=== PATIENT | male | born 1980 | race Hispanic/Latino ===

== ENCOUNTER 2025-02-28 13:10 | Emergency (ER) | payer BC, SELFPAY ==
[2025-02-28 13:14] VITALS: BP 145/93
[2025-02-28 13:39] VITALS: BMI 39.3
--- NOTE | 2025-02-28 13:50 | EDRN ---
Hand wrapped in wet saline dressings and covered w/blue chux to hold dressings in place prior to leaving for Xray. Rene polanco CHIEF [employer]IT FORESTER in to see pt.
--- NOTE | 2025-02-28 13:58 | ED.GENMED ---
History of Present Illness
General
Chief Complaint: Skin Surface Trauma
Source: patient
Exam Limitations: none
Time Seen by Provider: 02/28/25 13:37
Nursing documentation reviewed up to this point in time: agreed with
History of Present Illness
History of Present Illness:
44 yr old male presents to the ED for evaluation of finger lacerations. Pt works in [employer] and was trimming bushes and accidentally cut himself with a hedge tremor. He is right-hand dominant. He is up to date on his tetanus. patient
complains lacerations to his left hand 1st, 3rd, 4th and 5th fingers. He denies any numbness tingling.
Phy Exam
General Physical Exam
General Presentation: no apparent distress
General age: appears stated age
General Skin: warm and dry
General Habitus: normal
General Mental: alert
General Hydration: appears well hydrated
Neurological Exam
Neurological Exam: alert and oriented x3
Musculoskeletal Exam
Musculoskeletal Exam: other (Left upper extremity strong pulses left thumb with full-thickness 3 cm laceration to distal phalanx, third finger w/ 2 cm distal full-thickness lac volar aspect distal phalanx fourth finger with 3 cm macerated
full-thickness laceration to distal phalanx volar aspect 5th finger 1 cm distal phlaynx )
Skin Exam
Skin Exam: normal color and warm/dry
Psychiatric Exam
Psychiatric Exam: normal mood/affect
Course
Orders/Labs/Results
Orders:
Orders
02/28/25 13:50
CR Hand - Left Min 3 Views Urgent
Comment:
Reason For Exam: injury to fingers middle, ring and thumb
02/28/25 15:08
Cephalexin Monohydrate [Keflex] 500 mg PO NOW STA
02/28/25 15:15
Ibuprofen [Motrin] 600 mg PO NOW STA
Vital Signs
Initial and Last Documented VS:
Initial Vital Signs
Temp Pulse Resp BP Pulse Ox
98.1 F 97 16 145/93 98
02/28/25 13:14 02/28/25 13:14 02/28/25 13:14 02/28/25 13:14 02/28/25 13:14
Last Documented Vital Signs
Temp Pulse Resp BP Pulse Ox
98.1 F 92 16 144/101 99
02/28/25 13:14 02/28/25 15:35 02/28/25 15:35 02/28/25 15:35 02/28/25 15:35
Procedures
Other
Indication for procedure:: Lacerations:
Procedure completed by: Myself
Additional Procedure:
Laceration to left thumb approximately 3 cm. to subcutaneous tissue sutured with 6 sutures of of 5.0 nylon simple interrupted
Laceration to third finger approximately 2 cm with 4 sutures of 5.0 nylon
Laceration to fourth finger approximately 3 cm macerated sutures with 4 cm of 5.0 nylon
Laceration to finger 6 with 1 suture of 5.0 nylon.
No tendon identified or visualized
Wounds were irrigated with copious marcin normal saline prior to suturing; Betadine prep and digital block done with lidocaine without epinephrine
All sutures were simple interrupted
Dressed with nonsterile dressing antibiotic ointment and Anjali
MDM/Problems Addressed
Differential Diagnosis Includes:
Not limited to laceration tendon injury fracture
MDM/Problems Addressed:
44-year-old male sustained multiple finger lacerations from a hedge tremor, wounds were irrigated with copious amts of normal saline; no obvious bony injury on x-ray patient was up-to-date on tetanus. Patient with good flexion extension of all
fingers except on fourth finger seem to have diminished flexion/ extension. I was not able to visualize the tendon injury ,however this finger was placed in a splint and patient was given referral to hand surgeon. Did discuss with patient
importance of outpatient referral for possible tendon injury. He was started on antibiotics.
*Pulse Oximetry
SaO2: 98
Oxygen Mode of Delivery: Room air
Patient hypoxic: not evaluated
*Critical Care Note
Total Time (30-74mins, 75-104mins- exclusive of procedures): Not Applicable
ED Attending Note
-
Portions of this chart may have been created with voice recognition software.� Occasional wrong word or��sound alike� substitutions may have occurred due to the inherent limitations of voice recognition software.
Discharge Plan
Departure
Patient Disposition: Home (Routine Discharge)
Date of Disposition: 02/28/25
Time of Disposition: 15:09
Patient with high blood pressure during this ER visit?: Yes
Condition: Fair
Covid-19: Not Applicable
Discharge Problem:
Finger laceration
Instructions: Laceration Repair With Stitches (DC), BLOOD PRESSURE
Prescriptions:
New
cephalexin 500 mg capsule
500 mg PO Q6H Qty: 20 0RF
Referrals:
Cecil Steel MD [Active, Orthopedics]
Tangela Houston MD [Family Provider, Family Practice]
Nestor Clark MD [Active, Orthopedics]
Activity Restrictions/Additional Instructions:
Keep wound clean and dry for 24 hours after 24 hours wash twice if supported pat dry apply small layer of antibiotic open to the area. See hand physician in the next several days for reevaluation. Please call today to make an appointment. Wear
splint for support
Antibiotic as directed.
this medication was sent to your pharmacy take as directed. Return if any worsening of symptoms of increased pain swelling drainage fever chills
Interventions
Interventions:
*Risk Screen - Suicide Last Done: 02/28/25 13:41
*General Assessment Last Done: 02/28/25 13:40
*Neglect/Abuse Screening Last Done: 02/28/25 13:41
*ED- Fall Risk Assessment Last Done: 02/28/25 13:40
*ED COVID-19 Vaccine History Last Done: 02/28/25 13:40
*Nursing Disposition Last Done: 02/28/25 15:39
ED-Skin Assessment Last Done: 02/28/25 14:58
Discharge Date and Time
Discharge Date/Time: 02/28/25 15:40
Print Language: [place]
--- NOTE | 2025-02-28 14:13 | EDRN ---
Rene Villalpando FINGERPRINT CLASSIFIER in room attempting to numb and suture avulsions on thumb, finger #3 and #4 at this time.
--- NOTE | 2025-02-28 14:36 | EDRN ---
Dr. Valentino now assisting Rene Villalpando DIALYSIS TECH in room w/ pt at this time.
[2025-02-28] MEDS: MOTRIN 600 MG PO (15:27)
[2025-02-28] MEDS: KEFLEX 500 MG PO (15:27)
--- NOTE | 2025-02-28 15:29 | EDRN ---
Post suturing of thumb and 3 fingers and area well irrigated w/ saline, dressings of double antibiotic ointment/telfa/danielle appied to thumb and fingers #3,#4 and #5 then finger # 4 splinted under danielle and whole hand dressed in kerlix. All danielle and
kerlix placed w/ pressure related to large amount of bleeding during suturine.
[2025-02-28 15:35] VITALS: BP 144/101
== END 2025-02-28 15:40 | disposition home or self-care (01) ==
LOC: EMR 13:10
PROVIDERS: EMERGENCY PHYSICIAN Emergency Medicine; FAMILY PHYSICIAN Family Medicine
DX: S61.012A Laceration without foreign body of left thumb without damage to nail, initial encounter (principal); S61.213A Laceration without foreign body of left middle finger without damage to nail, initial encounter; S61.215A Laceration without foreign body of left ring finger without damage to nail, initial encounter; S61.217A Laceration without foreign body of left little finger without damage to nail, initial encounter; W29.3XXA Contact with powered garden and outdoor hand tools and machinery, initial encounter; Y93.H2 Activity, gardening and landscaping
CPT/HCPCS: 64450; 99284; 12004; 73130